=== PATIENT | male | born 2000 | race Caucasian/White ===

== ENCOUNTER 2018-08-01 23:08 | Emergency (ER) | payer BC ==
[~2018-08-01] VITALS: Ht 172.7 cm; Wt 72.6 kg
[2018-08-01 23:31] VITALS: BP 139/92
== END 2018-08-02 00:35 | disposition left against medical advice (07) ==
LOC: ER 23:10 → EDBD 23:10 → ER 08-02 00:35
DX: M54.5 Low back pain (principal); M25.552 Pain in left hip; M79.642 Pain in left hand; M79.641 Pain in right hand; Z53.21 Procedure and treatment not carried out due to patient leaving prior to being seen by health care provider; V49.49XA Driver injured in collision with other motor vehicles in traffic accident, initial encounter; Y93.89 Activity, other specified; Y99.8 Other external cause status; Y92.410 Unspecified street and highway as the place of occurrence of the external cause
CPT/HCPCS: 72131; 72192; 73130